=== PATIENT | male | born 1950 | race Hispanic/Latino ===

== ENCOUNTER 2017-09-26 07:57 | Day surgery (SDC) | payer OTHER ==
[2017-09-25 15:34] LABS: BASOPHILS % (AUTO) 0.7 % (0.0-5.0); EOSINOPHILS % (AUTO) 3.2 % (0.0-8.0); HEMATOCRIT 37.1 % (42-54); LYMPHOCYTES % (AUTO) 21.3 % (21.0-51.0); MEAN CORPUSCULAR HEMOGLOBIN 32.5 pg (27.0-33.0); MEAN CORPUSCULAR HGB CONC 34.7 g/dL (32.0-36.0); MEAN CORPUSCULAR VOLUME 93.7 fL (79-99); MONOCYTES % (AUTO) 10.1 % (3.0-13.0); NEUTROPHILS % (AUTO) 64.7 % (40.0-77.0); PLATELET COUNT (AUTO) 333 K/uL (130-400); RED BLOOD CELL COUNT(AUTO) 3.96 MIL/uL (4.50-6.20); RED CELL DISTRIBUTION WIDTH 13.1 % (11.0-15.5); WHITE BLOOD COUNT (AUTO) 8.5 K/uL (4.8-10.8)
[2017-09-25 15:42] LABS: POTASSIUM 3.4 mmol/L (3.5-5.1)
[2017-09-25 15:47] VITALS: BP 140/79
[~2017-09-26] VITALS: Ht 172.7 cm; Wt 81.7 kg
[2017-09-26] VITALS (16 sets, daily range): BP systolic 113–142; BP diastolic 62–82
[2017-09-26] MEDS: CEFAZOLIN SODIUM 1 GM VIAL IVP SCH ×2 (07:30→10:30)
[~2017-09-26 07:57] MED LIST: ACET-2743 PO; ASPI-1181 PO; LISI1TAB9 PO; MECL-111 PO
[2017-09-26] MEDS ORDERED: LACTATED RINGERS 1000ML 1,000 ML IV ONE (08:34)
[2017-09-26] MEDS ORDERED: AMLO5TAB2 PO (08:59)
[2017-09-26] MEDS ORDERED: PARO-37 PO (08:59)
[2017-09-26] MEDS ORDERED: ONDANSETRON HCL 4 MG/2 ML VIAL ONE (09:45)
[2017-09-26] MEDS ORDERED: MIDAZOLAM HCL 1 MG/ML 2ML VIAL ONE (09:46)
[2017-09-26] MEDS ORDERED: GLYCOPYRROLATE 0.2 MG/ML 5 ML VIAL ONE (09:46)
[2017-09-26] MEDS ORDERED: SUCCINYLCHOLINE 200MG/10ML SYR ONE (09:46)
[2017-09-26] MEDS ORDERED: PROPOFOL 10 MG/ML 20ML VIAL IV ONE (09:46)
[2017-09-26] MEDS ORDERED: LIDOCAINE PF 2% 5ML ABBOJECT ONE (09:46)
[2017-09-26] MEDS ORDERED: DEXAMETHASONE SOD PHOSPHATE 10MG/ML 1ML VIAL ONE (09:46)
[2017-09-26] MEDS ORDERED: FENTANYL CITRATE PF 50 MCG/1 ML 2ML VIAL ONE ×2 (09:47→09:58)
[2017-09-26] MEDS ORDERED: ROPIVACAINE 0.5% 5MG/ML 30ML IJ ONE (09:48)
[2017-09-26] MEDS ORDERED: CEFAZOLIN SODIUM 1 GM VIAL ONE (10:49)
[2017-09-26] MEDS ORDERED: RACEPINEPHRINE HCL 2.25% 0.5 ML NEB SOLN ONE (11:39)
[2017-09-26] MEDS ORDERED: KETOROLAC TROMETHAMINE 30MG/ML ONE (12:32)
== END 2017-09-26 14:10 | disposition home or self-care (01) ==
LOC: DAH 07:57
PROVIDERS: ATTEND Orthopaedic Surgery
DX: S52.321A Displaced transverse fracture of shaft of right radius, initial encounter for closed fracture (principal); X58.XXXA Exposure to other specified factors, initial encounter; Y93.89 Activity, other specified; Y92.9 Unspecified place or not applicable; Y99.9 Unspecified external cause status; I10 Essential (primary) hypertension; Z98.890 Other specified postprocedural states; Z79.899 Other long term (current) drug therapy; F32.9 Major depressive disorder, single episode, unspecified
CPT/HCPCS: 25515; 36415; 76000; 80048; 85025; 93005; 94640; A4218; A4565; A4930; A6207; A6223; C1713; J0330; J0690 ×2; J1100; J1885; J2001; J2250; J2405; J2704; J2795; J3010 ×2; J3490; J7030; J7120